=== PATIENT | male | born 1945 | race Caucasian/White ===

== ENCOUNTER 2022-07-12 13:45 | Outpatient (CLI) | payer MEDICARE, OTHER | END 2022-07-12 23:59 | disposition left against medical advice (07) | LOC: EMS 13:45 | DX: M54.2 Cervicalgia (principal); V43.52XA Car driver injured in collision with other type car in traffic accident, initial encounter; Y92.414 Local residential or business street as the place of occurrence of the external cause; I10 Essential (primary) hypertension ==